=== PATIENT | male | born 1975 | race Asian ===

== ENCOUNTER 2020-08-30 20:35 | Emergency (ER) | payer OTHER ==
[~2020-08-30] VITALS: Ht 182.9 cm; Wt 123.8 kg
[2020-08-31] MEDS ORDERED: TETANUS-DIPTH-ACEL PERTUSSIS 0.5ML SYR Tdap IM ONE (00:15)
[2020-08-31] MEDS ORDERED: LIDOCAINE 1% HCL (LOCAL ANESTH.) INJ 20ML MDV IJ ONE (02:15)
[2020-08-31] MEDS ORDERED: LIDOCAINE 2%HCL (LOCAL ANESTH.) INJ 10ml MDV IJ ONE (02:45)
[2020-08-31] MEDS ORDERED: LIDOCAINE 2% (LOCAL ANESTH.) PF 5ml SDV ONE (02:46)
[2020-08-31] MEDS ORDERED: HYDROcodone-ACET 5/325MG TAB PO ONE ×2 (03:15)
[2020-08-31 03:22] VITALS: BP 140/90
== END 2020-08-31 03:24 | disposition home or self-care (01) ==
LOC: ER 20:35
DX: S82.54XA Nondisplaced fracture of medial malleolus of right tibia, initial encounter for closed fracture (principal); S62.623A Displaced fracture of middle phalanx of left middle finger, initial encounter for closed fracture; V29.9XXA Motorcycle rider (driver) (passenger) injured in unspecified traffic accident, initial encounter; Y93.89 Activity, other specified; Y92.89 Other specified places as the place of occurrence of the external cause; Y99.8 Other external cause status
CPT/HCPCS: 29515; 73130; 73610; 90471; 90715; 99284; J2001